=== PATIENT | male | born 1945 | race Caucasian/White ===

== ENCOUNTER → 2016-12-11 | Day surgery (SDC) | payer MEDICARE ==
[~2016-12-11] MED LIST: BUPIVACAINE/EPINEPHRINE 0.5% PF 10 ML VIAL ONE; LACTATED RINGER'S 1000 ML INJ 1,000 ML ONE; MIDAZOLAM HCL 2 MG/2 ML VIAL ONE; PROPOFOL 200 MG/20 ML AMP IV ONE; ceFAZolin 2 GM PREMIX 50 ML ONE
--- NOTE | 2016-12-11 13:26 | TN ---
cc: SHERLY LEDEZMA M.D. DATE OF SURGERY: 12/11/2016. PREOPERATIVE DIAGNOSIS: Incarcerated umbilical hernia with protuberant stretched skin. POSTOPERATIVE DIAGNOSES: Incarcerated umbilical hernia with protuberant stretched skin. OPERATIVE PROCEDURE PERFORMED: Open repair umbilical hernia with mesh and umbilicoplasty SURGEON: Dr. Sherly Ledezma. BOTTLING SUPERVISOR: Jackie Avitia MS-3. ANESTHESIA: General. INDICATIONS FOR THE PROCEDURE: This is a pleasant 71-year-old gentleman who has had recent 60 to 80 pound weight loss and an umbilical hernia which is incarcerated and of longstanding which become more apparent and is protuberant. He is interested in pursuing a repair. It is not reducible. INTRAOPERATIVE FINDINGS: Incarcerated omentum through a 2 cm umbilical hernia defect. ESTIMATED BLOOD LOSS: Less than 10 mL. DESCRIPTION OF PROCEDURE IN DETAIL: The patient was identified as Medhat Joel and taken to the operating room and placed in the supine position. Sequential compression devices were placed on bilateral lower extremities. Following induction of adequate general anesthesia through a laryngeal mask, the patient's abdomen protuberant incarcerated umbilical hernia was prepped and draped in the usual sterile fashion with Betadine. A time-out procedure was performed. Following completion of the time-out procedure to everyone's satisfaction within the room, the proposed elliptical incision including excess skin was made with a marking pen and infiltrated with local anesthetic. Local anesthetic was placed around the entire umbilicus. The incision was carried out with a scalpel and dissection continued posteriorly controlling a small amount of bleeding with electrocautery. The skin and subcutaneous tissue were from the underlying hernia sac. The hernia sac was divided at the level of the umbilical fascial defect allowing for identification of the incarcerated omentum. The omentum was released from its attachments to the overlying hernia sac using electrocautery. 2-0 Vicryl suture ligatures and ties were used for small bleeding points. Once the omentum was hemostatic, the attempts to reduce it were not successful through the present opening and therefore the opening was extended about half a cm in both directions laterally. This allowed for reduction of the omentum into the peritoneal cavity. Due to his very thin skin and the fact that he is a diabetic, I did not want to place mesh in the subcutaneous tissue and therefore a retro rectus plane was developed circumferentially using electrocautery and the posterior fascia and peritoneum were approximated with a running 2-0 PDS suture. A small piece of mesh about 5 x 5 cm in size was placed in the retro rectus position and held in position at four points with interrupted 2-0 Vicryl sutures. The anterior fascia was then identified and closed in a transverse fashion using interrupted inverted #0 Prolene sutures. Irrigation in each layer was performed with meticulous assurance of hemostasis made. The umbilicoplasty was then performed using multiple interrupted 2-0 Vicryl sutures and the skin was approximated with a running 4-0 Monocryl subcuticular suture. Dressings were applied with Mastisol, half-inch brown Steri-Strips, gauze and Tegaderm. An abdominal binder was placed. The patient tolerated the procedure without apparent complication. Sponge, needle and instrument counts were correct at the end of the case. MD EJ Guerrero/HOA /1:10 PM /1:18 PM
== END | disposition home or self-care (01) ==
LOC: ESDC 10:00
PROVIDERS: ATTEND Surgery Trauma Surgery
DX: K42.0 Umbilical hernia with obstruction, without gangrene (principal)
CPT/HCPCS: 00750; 49587; C1781; J0690; J2250; J3010; J7120